=== PATIENT | female | born 1935 | race Caucasian/White ===

== ENCOUNTER 2016-12-16 19:04 | Emergency (ER) | payer SELFPAY ==
[~2016-12-16] VITALS: Ht 167.6 cm; Wt 60.0 kg
[2016-12-16 19:06] VITALS: BP 190/87; PULSE 75; RESP 18; TEMP 98; O2SAT 95
[2016-12-16 19:10] VITALS: BP 159/68; PULSE 60; RESP 18; TEMP 98.1; O2SAT 96
== END 2016-12-16 21:27 | disposition left against medical advice (07) ==
LOC: NED 19:04
DX: R51 Headache (principal); W01.0XXA Fall on same level from slipping, tripping and stumbling without subsequent striking against object, initial encounter; Z53.21 Procedure and treatment not carried out due to patient leaving prior to being seen by health care provider
CPT/HCPCS: 99281